=== PATIENT | male | born 1960 | race Two or more races ===

== ENCOUNTER 2024-10-09 23:50 | Emergency (ER) | payer OTHER ==
[~2024-10-09] VITALS: Ht 188 cm; Wt 102.0 kg
--- NOTE | 2024-10-10 00:54 | ED.PDOC ---
Altered Mental Status HPI Comments HPI: 64-year-old male who came to ER via EMS for altered level of consciousness. Per EMS, patient last seen normal 10 pm by family members. Patient apparently was drinking earlier tonight. Patient was found to be unresponsive to verbal stimuli. Was saturating 88% on room air on scene. Per , who was at bedside, said to be working out at a garden under the heat of the sun all day. He was then seen lying on the bench outside at around 10pm, he stood up but found it difficult to ambulate/ imbalance. states patient was drinking a glass of tequila earlier Initial Vitals BP: 106/63 HR: 65 RR: 21 O2: 95% Temp: Past Medical History: Hypertension. Past Surgical History: Social History: (+)ETOH, (-)smoking, and drug use. Medications: Allergies: HPI: Poor Historian. Past Medical History: Past Surgical History: REVIEW OF SYSTEMS: Limited given the patient's altered level of consciousness. CONSTITUTIONAL: Denies acute: fever, diaphoresis, chills, generalized weakness. HEAD: Denies acute: headache, photophobia Eyes: Denies acute: Double vision, vision loss, eye pain, eye discharge. EARS: Denies acute: tinnitus, hearing loss, ear discharge, ear pain, THROAT: Denies acute: sore throat, swelling, difficulty swallowing , pain with swallowing, change in voice. NECK: Denies acute: neck pain, neck swelling, stiff neck. HEART: Denies acute : chest pain, palpitations, LUNGS: Denies acute: SOB, wheezing, cough, hemoptysis ABDOMEN: Denies acute: abdominal pain, Nausea, Vomiting, diarrhea, melena , hematemesis, hematochezia SKIN: Denies acute: rash, redness, lesions, itchiness. EXTREMITIES: Denies acute: calf pain, numbness, tingling, weakness, denies pain in extremity. Denies acute: Low back pain. Neuro: Denies acute: focal neurological deficit, motor or sensory focal neurological deficit, tremors, seizure like activity, confusion, dizziness, change in mental status, loss of bowel or bladder function, cauda equina like symptoms. : Denies acute: dysuria, hematuria, flank pain, increase in urinary frequency. PSYCH: Denies acute: hallucination, suicidal ideation, homicidal ideation. PHYSICAL EXAM: General: --unresponsive. There is noted eye movements when I open his eyelids. Head: normocephalic, atraumatic. Neck: supple, trachea is midline, no swelling. Eyes:, no erythema, no purulent discharge, no proptosis, no icterus. Heart: regular rate, regular rhythm, no significant murmur appreciated. Lungs: no apparent respiratory distress, No wheezing, no rhonchi, no crackles. No stridors Clear to auscultation bilaterally. Abdomen: non tender to palpation, non distended, soft, no guarding, no rebound, + bowel sounds. Neuro: Unresponsive. Noticed that he coughed a few times a normal cough. Skin: no petechia, no purpura, no cyanosis, non-pale, not jaundice. Lower extremities: --no - Pitting edema no deformity, no focal swelling, no calf TTP. Face: no apparent facial droop. ED COURSE: DISCLAIMER: This medical document was created using an electronic medical record system with voice recognition software and computerized dictation system. Although this document has been carefully reviewed, there might still be some phonetic and t ypographical errors. Occasional wrong-word or "sound-alike" substitutions may have occurred due to the inherent limitations of voice recognition software. These areas are purely typographical due to imperfections of the software programs and do not reflect any compromise in the patient's medical care. Please read the chart carefully and recognize, using context, where these substitutions have occurred. Chief Complaint: ETOH Time Seen by MD: 00:53 Allergies: Coded Allergies: NO KNOWN ALLERGIES (Unverified , 10/10/24) Information Source: Emergency Med Personnel Mode of Arrival: EMS Severity: Unable to Care for Self, Unresponsive Past Medical History PAST MEDICAL HISTORY: HTN Surgical History: Denies all surgeries Family History Family History: Reviewed,noncontributory to illness Social History Smoker: Non-Smoker Alcohol: Heavy Drugs: Denies Drug Use Lives In: Home Was a procedure done? Was a procedure done?: No Differential Diagnosis (ALOC) Differential Diagnosis: Other (DDX include CVA, TGA, cerebellar ischemia/infarct, carotid stenosis, Intracranial mass/infection/bleed, encephalopathy, electrolyte abnormality, thyroid disease, hydrocephalus, hypoglycemia, drug toxicity, cardiac arrhythmia, seizure, infection in the elderly, Hyperammonemia., kidney failure., sepsis.) X-Ray, Labs, Meds, VS Vital Signs Date Time Temp Pulse Resp B/P (MAP) Pulse Ox O2 Delivery O2 Flow Rate FiO2 10/10/24 04:00 58 18 103/62 (76) 96 10/10/24 03:19 Room Air* 0 21 10/10/24 02:00 56 12 108/58 (75) 98 10/10/24 01:00 97.2 56 15 95/50 (65) 100 97.2 10/10/24 01:00 Nasal Cannula* 2 28 10/10/24 00:01 56 10/09/24 23:50 98.9 62 20 108/62 95 98.9 Lab Test 10/10/24 03:12 10/10/24 03:09 10/10/24 02:35 10/10/24 01:49 Range/Units Troponin I High Sensitivity < 3 L < 3 L </=54 ng/L Urine Opiates Screen Neg NEGATIVE Urine Fentanyl Screen Neg NEGATIVE Urine Barbiturates Screen Neg NEGATIVE Urine Phencyclidine Screen Neg NEGATIVE Urine Amphetamines Screen Neg NEGATIVE Urine Benzodiazepines Screen Neg NEGATIVE Urine Cocaine Screen Neg NEGATIVE Urine Cannabinoids Screen Neg NEGATIVE Lactic Acid Level 2.0 0.4-2.0 mmol/L Test 10/10/24 00:35 Range/Units White Blood Count 10.1 4.4-10.8 10^3/uL Red Blood Count 4.68 4.5-5.90 10^6/uL Hemoglobin 14.2 13.5-17.5 g/dL Hematocrit 41.1 41.0-53.0 % Mean Corpuscular Volume 87.9 80.0-100.0 fL Mean Corpuscular Hemoglobin 30.4 28.0-32.0 pg Mean Corpuscular Hemoglobin Concent 34.6 32.0-36.0 g/dL Red Cell Distribution Width 13.8 11.8-14.3 % Platelet Count 258 140-450 10^3/uL Mean Platelet Volume 8.2 6.9-10.8 fL Neutrophils (%) (Auto) 75.7 37.0-80.0 % Lymphocytes (%) (Auto) 18.0 10.0-50.0 % Monocytes (%) (Auto) 3.8 0.0-12.0 % Eosinophils (%) (Auto) 2.2 0.0-7.0 % Basophils (%) (Auto) 0.3 0.0-2.0 % Neutrophils # (Auto) 7.6 1.6-8.6 10 ^3/uL Lymphocytes # (Auto) 1.8 0.4-5.4 10 ^3/uL Monocytes # (Auto) 0.4 0-1.3 10 ^3/uL Eosinophils # (Auto) 0.2 0-0.8 10 ^3/uL Basophils # (Auto) 0 0-0.2 10 ^3/uL Nucleated Red Blood Cells 0.0 % Prothrombin Time 10.7 9.3-11.8 sec Prothrombin Time INR 1.01 0.9-1.15 Activated Partial Thromboplast Time 35.5 H 24.5-34.5 SEC Sodium Level 144 136-145 mmol/L Potassium Level 3.4 L 3.5-5.1 mmol/L Chloride Level 109 H 98-107 mmol/L Carbon Dioxide Level 21 20-31 mmol/L Anion Gap 14 5-15 Blood Urea Nitrogen 11 9-23 mg/dL Creatinine 0.90 0.700-1.30 mg/dL Glomerular Filtration Rate Calc 95 >90 mL/min BUN/Creatinine Ratio 12.2 10.0-20.0 Serum Glucose 133 H 74-106 mg/dL Lactic Acid Level 2.5 *H 0.4-2.0 mmol/L Calcium Level 8.8 8.7-10.4 mg/dL Magnesium Level 2.1 1.6-2.6 mg/dL Total Bilirubin 0.2 0.2-1.0 mg/dL Aspartate Amino Transferase (AST) 22 13-40 U/L Alanine Aminotransferase (ALT) 22 7-40 U/L Alkaline Phosphatase 83 46-116 U/L Ammonia 15 11-32 umol/L Creatine Kinase 253 H 46-171 U/L Troponin I High Sensitivity < 3 L </=54 ng/L Total Protein 7.3 5.7-8.2 g/dL Albumin 4.6 3.2-4.8 g/dL Plasma/Serum Blood Alcohol 174.5 H <10 mg/dL [facility] [address] [facility] [address] Ph: [phone] DIAGNOSTIC IMAGING Diagnostic Imaging Report : [id number] Signed PATIENT: PIETER FLORES ACCT: [id number] UNIT: [id number] : 1960 LOC: ER ROOM / BED: / AGE / SEX: 64 / M ADM STATUS: REG ER SERVICE ORDERING PHYSICIAN: CELENA MAYER DO PROCEDURE(s): HWOCT - HEAD WITHOUT CONTRAST REASON: aloc/etoh ORDER NUMBER(s): [id number], ACCESSION NUMBER(s): [id number] EXAM: CT HEAD WITHOUT CONTRAST INDICATION: aloc/etoh TECHNIQUE: CT of the head without intravenous contrast. Radiation Dose : 1. Head: CT Dose: CTDI volume is 68 mGy. Dose-length product is 1474 mGy*cm The dose indicators for CT are the volume Computed Tomography (CT) Dose Index (CTDIvol) and the Dose Length Product (DLP), and are measured in units of mGy and mGy-cm, respectively. These indicators are not patient dose, but values generated from the CT scanner acquisition factors. The report includes radiation exposure data for exposures received during this examination. COMPARISON: None FINDINGS: Brain: No acute hemorrhage, mass effect, or cerebral edema. Empty, expanded sella. CSF Spaces: Size and morphology within normal limits. Bones/Soft Tissues: No acute findings. Orbits/Sinuses/Mastoids: Unremarkable as visualized. IMPRESSION: 1. No acute intracranial abnormality. Radiation optimization: All CT scans at this facility use at least one of these dose optimization techniques: automated exposure control mA and/or kV adjustment per patient size (includes targeted exams where dose is matched to clinical indication) or iterative reconstruction. ATED BY: MAE SELBY MD DICTATED DATE/TIME: 10/10/24105 SIGNED BY: MAE SELBY MD SIGNED DATE/TIME: 10/10/24105 CC: [address] [address] Ph: [phone] DIAGNOSTIC IMAGING Diagnostic Imaging Report : [id number] Signed PATIENT: PIETER FLORES ACCT: [id number] UNIT: [id number] : 1960 LOC: ER ROOM / BED: / AGE / SEX: 64 / M ADM STATUS: REG ER SERVICE ORDERING PHYSICIAN: CELENA MAYER DO PROCEDURE(s): CXRP - CHEST PORTABLE REASON: aloc/etoh ORDER NUMBER(s): [id number], ACCESSION NUMBER(s): [id number] INDICATION: aloc/etoh, SOB TECHNIQUE: Frontal view of the chest. COMPARISON: None FINDINGS/IMPRESSION: There is pulmonary vascular congestion. There is prominence of the cardiomediastinal silhouette, likely accentuated by technique. No pleural effusion or pneumothorax. No acute osseous abnormality. ATED BY: NICKIE BUSTILLO MD DICTATED DATE/TIME: 10/10/24117 SIGNED BY: NICKIE BUSTILLO MD SIGNED DATE/TIME: 10/10/24117 CC: Time of 1ST Reevaluation: 00:51 Reevaluation 1ST: Unchanged Time of 2ND Reevaluation: 01:01 (Stroke protocol was initiated. Spoke with the tele neuro doctor on the phone who agrees with our management and will evaluate the patient on the camera.) Time of 3RD Reevaluation: 03:17 (Has been patient now is following commands eyes are open making eye contacts moving both hands and both feet patient is now verbal ambulating independently to the and conversational and completely back to his baseline. Family at bedside agree with the findings.) Patient Education/Counseling: Pt Unresponsive Family Education/Counseling: Diagnosis, Treatment Comments MDM: patient presented with the above HPI.---altered level of consciousness---workup was initiated. patient was found with the above mentioned diagnosis. Code stroke was initiated. the following medications were ordered: please refer to order lists of meds and tests obtained by myself Dr. Mayer. Patient ED course and VS have been stabilized. Patient has been reassessed in the ED and remained in a stable condition. Pertinent incidental findings were discussed with the patient and/or family. Patient/family voices understanding and is agreeable with plan. Patient has been observed in the ED adequate length of time to insure improvement/stability. Escalation of care considered: Consideration of escalation to observation or admission Neurology was consulted. Patient was ADMITTED to the medicine team for further evaluation and treatment of their presentation. However patient wanted to leave against medical advice. Patient is back to his baseline. Family at bedside agree with the assessment. All the reports of any imaging studies that were ordered by myself were reviewed by myself. SEPSIS Sepsis Screen Date sepsis recognized/suspect: Oct 10, 2024 Time Sepsis recognized/suspect: 2349 Recent Procedure: No On Antibiotic Therapy: No Respiratory Rate >20: No Heart Rate >90: No Temp<36 C (96.8 F) or >38.3 C: No SBP <90 or MAP <65 mmHG: No New Acute Mental Status Change: No Is the patient on CPAP, BIPAP,: No Physician Orders Shuttle Final Inspector (10/10/24 ) Chest Portable (10/10/24 00:15) Head Without Contrast (10/10/24 00:15) [place] Neuro Consult (10/10/24 00:23) Head Contrast Only (10/10/24 00:40) Vital Signs Date Time Temp Pulse Resp B/P (MAP) Pulse Ox O2 Delivery O2 Flow Rate FiO2 10/10/24 04:00 58 18 103/62 (76) 96 10/10/24 03:19 Room Air* 0 21 10/10/24 02:00 56 12 108/58 (75) 98 10/10/24 01:00 97.2 56 15 95/50 (65) 100 97.2 10/10/24 01:00 Nasal Cannula* 2 28 10/10/24 00:01 56 10/09/24 23:50 98.9 62 20 108/62 95 98.9 Laboratory Tests Test 10/10/24 00:35 10/10/24 02:35 Lactic Acid Level 2.5 mmol/L (0.4-2.0) *H 2.0 mmol/L (0.4-2.0) White Blood Count 10.1 10^3/uL (4.4-10.8) Departure 1 Departure Time of Disposition: 01:01 Impression: Primary Impression: Altered level of consciousness Additional Impressions: Acute encephalopathy Dehydration Alcohol abuse Left against medical advice Disposition: LEFT AGAINST MEDICAL ADVICE Admit to: Tele Condition: Guarded Additional Instructions: You are leaving against medical advice. Please seek medical attention TERESA. Please return to the emergency department if you change your mind. Please avoid alcohol. Avoid extensive heat exposure. Adequate fluid hydration. Additional instructions: Please read all instructions provided in this packet carefully. You MUST follow-up with your primary care/family doctor TERESA. If you are unable to see your primary care/family doctor, please return to our emergency room for re-assessment and re-evaluation Return to the emergency room here in our facility or to the nearest ER [facility] if your symptoms change or worsen. CONSULTATIONS: you MUST Follow-up for consultation as soon as possible with: neurology and cardiology. You MUST call the consultants office yourself to make an appointment. You may need to arrange that through your insurance and/or your primary/family doctor. If you are unable to see the child welfare consultant in 1 to 2 days, you must return to our emergency room (or any other ER of your choice) for re-assessment and re- evaluation. Adequate fluid hydration. Although you have been discharged from the Emergency Department, this does not mean that you have a "clean bill of health". No definitive diagnosis for your symptoms has been made today. It is possible that you are in the process of developing a serious illness. This is why you must return to the ED without fail if any new or worsening symptoms develop. Discharged With: Self, Relative Critical Care Note Critical Care Time?: Yes (>90min-critical care time only) I personally scribed for CELENA MAYER DO ([email or web address]) on 10/10/24 at 00:54. Electronically submitted by Ian Butts ([email or web address]). I personally scribed for CELENA MAYER DO ([email or web address]) on 10/10/24 at 00:55. Electronically submitted by Ian Butts ([email or web address]). I personally scribed for CELENA MAYER DO ([email or web address]) on 10/10/24 at 01:35. Electronically submitted by Ian Butts ([email or web address]). I personally scribed for CELENA MAYER DO ([email or web address]) on 10/10/24 at 03:19. Electronically submitted by Ian Butts ([employer]). I personally scribed for CELENA MAYER DO ([email or web address]) on 10/10/24 at 03:21. Electronically submitted by Ian Butts ([email or web address]). I personally scribed for CELENA MAYER DO ([email or web address]) on 10/10/24 at 05:20. Electronically submitted by Ian Butts ([facility]). CELENA MAYER DO Oct 10, 2024 00:54
[2024-10-10 00:59] LABS: Hematocrit 41.1 % (41.0-53.0); Hemoglobin 14.2 g/dL (13.5-17.5); Mean Corpuscular Hemoglobin 30.4 pg (28.0-32.0); Mean Corpuscular Volume 87.9 fL (80.0-100.0); Nucleated Red Blood Cells % 0.0 %
[2024-10-10 01:00] VITALS: TEMP 97.2
[2024-10-10 01:09] LABS: INR 1.01 (0.9-1.15); Partial Thromboplastin Time 35.5 SEC (24.5-34.5); Prothrombin Time 10.7 sec (9.3-11.8)
--- NOTE | 2024-10-10 01:09 | DVH ---
EXAM: CT HEAD WITHOUT CONTRAST INDICATION: aloc/etoh TECHNIQUE: CT of the head without intravenous contrast. Radiation Dose : 1. Head: CT Dose: CTDI volume is 68 mGy. Dose-length product is 1474 mGy*cm The dose indicators for CT are the volume Computed Tomography (CT) Dose Index (CTDIvol) and the Dose Length Product (DLP), and are measured in units of mGy and mGy-cm, respectively. These indicators are not patient dose, but values generated from the CT scanner acquisition factors. The report includes radiation exposure data for exposures received during this examination. COMPARISON: None FINDINGS: Brain: No acute hemorrhage, mass effect, or cerebral edema. Empty, expanded sella. CSF Spaces: Size and morphology within normal limits. Bones/Soft Tissues: No acute findings. Orbits/Sinuses/Mastoids: Unremarkable as visualized. IMPRESSION: 1. No acute intracranial abnormality. Radiation optimization: All CT scans at this facility use at least one of these dose optimization alice hniques: automated exposure control mA and/or kV adjustment per patient size (includes targeted exam s where dose is matched to clinical indication) or iterative reconstruction.
[2024-10-10] MEDS: SODIUM CHLORIDE 0.9% 1,000 ML IV ONE ×2 (01:11)
[2024-10-10] MEDS: IOHEXOL 300 MG/ML 100ML BOTTLE IJ ONE (01:11)
--- NOTE | 2024-10-10 01:19 | BSKYNEURO ---
[facility] Note # Demographics Consult Type: Acute Stroke Level 1 (0-4.5 hrs) Patient Location: Emergency Room First Name: Gary Last Name: Paola Date of : 1960 Age: 64 Gender: Male Facility: [facility] Time of Initial Page (): 10/10/2024 00:33 First Contact with Site (): 10/10/2024 00:34 # HPI History: 64 year-old male presents with AMS after having some ETOH about an hour prior. # Scores Time of exam and NIHSS (): 10/10/2024 01:06 Level of Consciousness 1a: [2] = Not alert; requires strong or painful stim LOC Questions 1b: [2] = Answers neither correctly LOC Commands 1c: [2] = Performs neither correctly Best Gaze 2: [0] = Normal Visual 3: [0] = No visual loss Facial Palsy 4: [0] = Normal symmetrical movements Motor Arm Left 5a: [3] = No effort against gravity Motor Arm Right 5b: [3] = No effort against gravity Motor Leg Left 6a: [3] = No effort against gravity Motor Leg Right 6b: [3] = No effort against gravity Limb Ataxia 7: [0] = Absent Sensory 8: [0] = Normal Best Language 9: [2] = Severe aphasia Dysarthria 10: [2] = Severe dysarthria Extinction and Inattention 11: [0] = No abnormality NIHSS Total: 22 # Exam Vitals: vital signs reviewed # Data Head CT: - no bleed # Assessment Impression: - Other Acute encephalopathy - suspect ETOH intoxication, no focal or lateralizing defi cits to suggest stroke # Plan Thrombolytic/Intervention: NOT IV Thrombolysis or IA Intervention candidate Thrombolytic/Intraarterial Exclusion: - IV thrombolytic and IA intervention considered but not recommended as this patient's symptoms are not clinically consistent with an assumed diagnosis of stroke Imaging: (urgency: routine): If symptoms persist without clear cause, consider brain MRI. Other: - I have discussed my recommendations with the referring provider Disposition: observation # Logistics Attestation of consult completion: The patient is located at: [facility]. Facility staff participated in the visit. I performed this telemedicine visit from my offsite office utilizing interactive 2 way audio and visual telecommunication technology at the request of the onsite emergency room provider. Total time spent in telemedicine encounter: I spent 15 minutes reviewing clinical data and/or imaging, obtaining history, examining the patient, communicating with the onsite care team, and in preparation of this report. # Demographics First Name: Gary Last Name: Paola Facility: [facility] Electronically signed at 10/10/2024 01:16 ([place] Time) by Lyle Saravia MD Yes LYLE SARAVIA MD Oct 10, 2024 01:19
[2024-10-10 01:22] LABS: Lactic Acid w/Reflex 2.5 mmol/L (0.4-2.0)
--- NOTE | 2024-10-10 01:22 | DVH ---
INDICATION: aloc/etoh, SOB TECHNIQUE: Frontal view of the chest. COMPARISON: None FINDINGS/IMPRESSION: There is pulmonary vascular congestion. There is prominence of the cardiomedias tinal silhouette, likely accentuated by technique. No pleural effusion or pneumothorax. No acute osse ous abnormality.
[2024-10-10 01:30] LABS: Alanine Aminotransferase 22 U/L (7-40); Albumin 4.6 g/dL (3.2-4.8); Alkaline Phosphatase 83 U/L (46-116); Anion Gap 14 (5-15); BUN/Creatinine Ratio 12.2 (10.0-20.0); Blood Urea Nitrogen 11 mg/dL (9-23); Calcium 8.8 mg/dL (8.7-10.4); Carbon Dioxide 21 mmol/L (20-31); Magnesium 2.1 mg/dL (1.6-2.6); Sodium 144 mmol/L (136-145); Total Protein 7.3 g/dL (5.7-8.2)
[2024-10-10 01:34] LABS: Bilirubin, Total 0.2 mg/dL (0.2-1.0); Chloride 109 mmol/L (98-107); Glucose 133 mg/dL (74-106); Potassium 3.4 mmol/L (3.5-5.1)
--- NOTE | 2024-10-10 01:38 | DVH ---
INDICATION: R/O CVA EXAM DATE: 10/10/2024 12:45 AM COMPARISON: CT HEAD WITHOUT CONTRAST on DOS: 10/10/24 TECHNIQUE: CTA head with intravenous contrast. 3D image postprocessing was performed on a [employer] workstation and images were used for interpretation and reporting. RADIATION DOSE: Brain: CTDIvol: 69.32 mGy, DLP: 1503.99 mGy*cm Tracker: CTDIvol: 69.32 mGy, DLP: 1503.99 mGy*cm Angio: CTDIvol: 69.32 mGy, DLP: 1503.99 mGy*cm FINDINGS: CT head: Assessment for intracranial hemorrhage and rodriguez-white matter differentiation better performed on [employer] noncontrast head CT. No abnormal parenchymal enhancement. No evidence of mass effect. CTA head: There is normal enhancement of the visualized distal internal carotid, anterior and middle cerebral a rteries. There is a normal anterior communicating artery complex. There are bilateral posterior com municating arteries. The vertebral, basilar, cerebellar and posterior cerebral arteries are within n ormal limits. The early parenchymal enhancement is grossly unremarkable. The visualized intracrania l venous structures are grossly unremarkable. IMPRESSION: 1. No large vessel intracranial occlusion, significant stenosis, or aneurysm.
[2024-10-10 03:58] LABS: Amphetamine Screen, Urine Neg (NEGATIVE); Barbiturate Scree,Urine Neg (NEGATIVE); Benzodiazephine Screen, Urine Neg (NEGATIVE); Cannabinoid Screen, Urine Neg (NEGATIVE); Cocaine Screen, Urine Neg (NEGATIVE); Opiate Scree,Urine Neg (NEGATIVE); Phencyclidine Screen, Urine Neg (NEGATIVE)
[2024-10-10 04:00] VITALS: BP 103/62; PULSE 58; RESP 18; O2SAT 96
--- NOTE | 2024-10-10 07:11 | ECG ---
[facility] Test Date: 2024-10-10 Test Time: 00:01:08 Pat Name: PIETER FLORES Department: [facility] ED Patient ID: [facility]-[id number] Room: Gender: M Plant Utility Person: : 1960 Requested By: CELENA MAYER Order Number: [id number] Reading MD: Keyur Patel Measurements Intervals Ensign Rate: 56 P: 23 OR: 159 QRS: -11 QRSD: 109 T: 3 QT: 385 QTc: 372 Interpretive Statements Sinus arrhythmia RSR' in V1 or V2, right VCD or RVH Minimal ST elevation, anterior leads Electronically Signed On 10-13-2024 14:35:23 PDT by Keyur Patel Please click the below link to view image of tracing.
== END 2024-10-10 05:16 | disposition left against medical advice (07) ==
LOC: EDBD 23:50 → ER 23:58
DX: G93.40 Encephalopathy, unspecified (principal); E86.0 Dehydration; F10.10 Alcohol abuse, uncomplicated; R41.82 Altered mental status, unspecified; I10 Essential (primary) hypertension; Y90.6 Blood alcohol level of 120-199 mg/100 ml
CPT/HCPCS: 36415; 70450; 70460; 71045; 80053; 80307; 80320; 82140; 82550; 82947; 83605; 83735; 84484; 85025; 85610; 85730; 93005; 96360; 99285; J7030